=== PATIENT | female | born 1955 | race Caucasian/White ===

== ENCOUNTER 2021-11-09 13:43 | Outpatient (CLI) | payer OTHER ==
[2021-11-09 15:15] LABS: #Basophils 0.1 10x3/uL (0.0-0.2); #Eosinphils 0.2 10x3/uL (0.0-0.5); #Monocytes 0.5 10x3/uL (0.0-1.1); #Neutrophils 3.9 10x3/uL (1.5-8.4); %Eosinophils 2.8 % (0.0-6.0); %Lymphocytes 34.4 % (18.0-47.0); %Monocytes 7.2 % (0.0-10.0); %Neutrophils 54.3 % (40.0-75.0); Hemoglobin 13.2 g/dL (12.0-15.5); Mean Corpuscular HGB CONC 33.3 g/dL (32.0-36.0); Mean Corpuscular Hemoglobin 31.6 pg (27.0-33.0); Mean Corpuscular Volume 94.7 fl (81.6-98.3); Mean Platelet Volume 11.3 fl (7.4-10.4); Platelet Count 217 10x3/uL (150-450); RBC Distribution Width 12.9 % (11.5-14.5); Red Blood Cell (RBC) Count 4.18 10x6/uL (3.90-5.03); White Blood Cell (WBC) Count 7.1 10x3/uL (3.5-10.5)
== END 2021-11-09 13:44 | disposition home or self-care (01) ==
LOC: LABBT 13:43
PROVIDERS: ATTEND Orthopaedic Surgery
DX: Z01.812 Encounter for preprocedural laboratory examination (principal); G56.02 Carpal tunnel syndrome, left upper limb; Z20.822 Contact with and (suspected) exposure to COVID-19
CPT/HCPCS: 85025; U0003; U0005

== ENCOUNTER 2021-11-14 08:22 | Day surgery (SDC) | payer OTHER ==
[2021-11-12 13:09] VITALS: BMI 30.7
[2021-11-14] MEDS ORDERED: fentaNYL Citrate/PF 100 MCG/2 ML SYRINGE ONE (10:57)
[2021-11-14] MEDS ORDERED: Propofol 500 MG/50 ML VIAL ONE (10:57)
[2021-11-14] MEDS ORDERED: Lidocaine 1% w/Epinephrine 1:100K 30 ML VIAL ONE (10:59)
[2021-11-14] MEDS ORDERED: CEFAZOLIN 2 GM VIAL ONE (11:04)
[2021-11-14] MEDS ORDERED: Sodium Chloride 0.9% 100 ML ONE (11:04)
== END 2021-11-14 12:55 | disposition home or self-care (01) ==
LOC: SDC 08:22
PROVIDERS: ATTEND Orthopaedic Surgery
PROC: 01N50ZZ Release Median Nerve, Open Approach (ICD-10-PCS; principal; 2021-11-14)
DX: G56.02 Carpal tunnel syndrome, left upper limb (principal); M16.11 Unilateral primary osteoarthritis, right hip; E66.9 Obesity, unspecified; Z68.30 Body mass index [BMI] 30.0-30.9, adult; Z79.1 Long term (current) use of non-steroidal anti-inflammatories (NSAID); Z79.899 Other long term (current) drug therapy; Z88.5 Allergy status to narcotic agent
CPT/HCPCS: J0690; J2704; J3490

== ENCOUNTER 2022-01-10 12:32 | Outpatient (CLI) | payer OTHER ==
[2022-01-10 14:49] LABS: #Basophils 0.1 10x3/uL (0.0-0.2); #Eosinphils 0.1 10x3/uL (0.0-0.5); #Monocytes 0.4 10x3/uL (0.0-1.1); #Neutrophils 3.1 10x3/uL (1.5-8.4); %Basophils 1.1 % (0.0-2.0); %Eosinophils 1.6 % (0.0-6.0); %Lymphocytes 33.8 % (18.0-47.0); %Monocytes 7.5 % (0.0-10.0); %Neutrophils 55.6 % (40.0-75.0); Hemoglobin 12.5 g/dL (12.0-15.5); Mean Corpuscular HGB CONC 33.6 g/dL (32.0-36.0); Mean Corpuscular Hemoglobin 31.8 pg (27.0-33.0); Mean Corpuscular Volume 94.7 fl (81.6-98.3); Mean Platelet Volume 12.1 fl (7.4-10.4); Platelet Count 238 10x3/uL (150-450); RBC Distribution Width 12.3 % (11.5-14.5); Red Blood Cell (RBC) Count 3.93 10x6/uL (3.90-5.03); White Blood Cell (WBC) Count 5.6 10x3/uL (3.5-10.5)
[2022-01-10 15:08] LABS: INR-International Normal Ratio 0.9; Prothrombin Time 10.3 sec (9.5-12.1)
[2022-01-10 15:11] LABS: Anion Gap 14 mmol/L (10-20); BUN (Urea Nitrogen) 19 mg/dL (9.8-20.1); Calc. Creatinine Clearance 0 mL/min (70-130); Calcium 9.9 mg/dL (7.8-10.44); Carbon Dioxide 25 mmol/L (23-31); Chloride 109 mmol/L (98-107); Estimated GFR 53; Glucose 135 mg/dL (80-115); Potassium 4.6 mmol/L (3.5-5.1); Sodium 143 mmol/L (136-145)
== END 2022-01-10 12:33 | disposition home or self-care (01) ==
LOC: LABBT 12:32
PROVIDERS: ATTEND Orthopaedic Surgery
DX: Z01.812 Encounter for preprocedural laboratory examination (principal); M16.11 Unilateral primary osteoarthritis, right hip; Z20.822 Contact with and (suspected) exposure to COVID-19
CPT/HCPCS: 80048; 85025; 85610; 87081; 87811

== ENCOUNTER 2022-01-15 05:32 | Inpatient (IN) | payer OTHER ==
[2022-01-11 12:23] VITALS: BMI 29.0
[2022-01-15] MEDS ORDERED: Tranexamic Acid 1,000 MG/10 ML VIAL ONE ×3 (05:53→09:44)
[2022-01-15] MEDS ORDERED: Sodium Chloride 0.9% 100 ML ONE ×2 (05:53→07:00)
[2022-01-15] MEDS ORDERED: Vancomycin (BATCH) 1.5 GRAM/300 ML BAG ONE (05:53)
[2022-01-15] MEDS ORDERED: Fentanyl 100 MCG/2 ML VIAL ONE ×2 (06:24→09:29)
[2022-01-15] MEDS ORDERED: Midazolam HCl 2 mg/2 ml Vial ONE (06:24)
[2022-01-15] MEDS ORDERED: fentaNYL Citrate/PF 100 MCG/2 ML SYRINGE ONE (06:39)
[2022-01-15] MEDS ORDERED: CEFAZOLIN 2 GM VIAL ONE (07:00)
[2022-01-15] MEDS ORDERED: Dexamethasone 20 MG/5 ML VIAL ONE (07:12)
[2022-01-15] MEDS ORDERED: Lidocaine 1.5% w/Epi 1:200K 30 ML VIAL (Epid Use) ONE (07:12)
[2022-01-15] MEDS ORDERED: PROPOFOL 200 MG/20 ML VIAL ONE (07:12)
[2022-01-15] MEDS ORDERED: Rocuronium Bromide 10 MG/ML (10ML VIAL) ONE (07:12)
[2022-01-15] MEDS ORDERED: Ondansetron PF 4 MG/2 ML Vial ONE (07:12)
[2022-01-15] MEDS ORDERED: Lidocaine 1% PF 5 ML VIAL ONE (07:12)
[2022-01-15] MEDS ORDERED: Ropivacaine 2% HCl/PF (20 MG/10 ML VIAL) ONE (07:12)
[2022-01-15] MEDS ORDERED: Acetaminophen 325 MG TAB PO PRN ×2 (07:48→11:58)
[2022-01-15] MEDS ORDERED: Ondansetron PF 4 MG/2 ML Vial IVP PRN ×4 (08:00→19:30)
[2022-01-15] MEDS ORDERED: traMADol HCl 50 MG TAB PO PRN ×2 (08:00)
[2022-01-15] MEDS ORDERED: diphenhydrAMINE 25 MG CAP PO PRN ×2 (08:00→11:58)
[2022-01-15] MEDS ORDERED: Naloxone HCl 0.4 mg/ml Vial IVP PRN (08:00)
[2022-01-15] MEDS ORDERED: diphenhydrAMINE 50 MG/ML VIAL IM PRN (08:00)
[2022-01-15] MEDS ORDERED: Naloxone HCl 0.4 mg/ml Vial IV PRN (08:00)
[2022-01-15] MEDS ORDERED: Zolpidem Tartrate 5 MG TAB PO PRN ×4 (08:00→19:30)
[2022-01-15] MEDS ORDERED: fentaNYL Citrate/PF 500 MCG, Bupivacaine 0.75% 10 ML in Sodium Chloride 0.9% 80 ML EPIDURAL SCH (08:00)
[2022-01-15] MEDS ORDERED: Bupivacaine 0.25% 10 ML VIAL EPIDURAL PRN (08:00)
[2022-01-15] MEDS ORDERED: Promethazine HCl 25 MG/ML VIAL IM PRN ×5 (08:00→19:30)
[2022-01-15] MEDS ORDERED: diphenhydrAMINE 50 MG/ML VIAL IVP PRN (08:00)
[2022-01-15] MEDS ORDERED: Promethazine HCl 25 MG SUPP PR PRN (08:00)
[2022-01-15] MEDS ORDERED: HYDROcodone/Acetaminophen 5/325 mg Tablet PO PRN ×2 (08:00)
[2022-01-15] MEDS ORDERED: Moisturizing Cream (Eucerin) 113 GM JAR TOP PRN (08:00)
[2022-01-15] MEDS ORDERED: SUGAMMADEX SODIUM 200 MG/2 ML VIAL ONE (08:31)
[2022-01-15] MEDS ORDERED: Ondansetron HCl/PF 4 MG/2 ML Vial IVP PRN (09:05)
[2022-01-15] MEDS ORDERED: Promethazine HCl 25 MG/ML VIAL IVPB PRN (09:05)
[2022-01-15] MEDS ORDERED: HYDROmorphone 2 MG/ML VIAL SLOW IVP PRN (09:05)
[2022-01-15] MEDS ORDERED: Bupivacaine PF 0.5% 30 ML VIAL ONE (09:22)
[2022-01-15] MEDS ORDERED: HYDROmorphone 0.5 MG/0.5 ML SYRINGE ONE (09:29)
[2022-01-15] MEDS ORDERED: HYDROcodone/Acetaminophen 10/325 mg Tablet PO PRN ×4 (11:15→19:30)
[2022-01-15] MEDS ORDERED: Ropivacaine HCl/PF 250 ML in Premix Bag 1 BAG NERVE BLCK SCH ×2 (11:15→19:30)
[2022-01-15] MEDS: Ketorolac Tromethamine 30 MG/ML VIAL IVP SCH ×2 (15:17→20:44)
[2022-01-15] MEDS: CEFAZOLIN 2 GM in Sodium Chloride 0.9% 100 ML IVPB SCH ×2 (15:17→23:24)
[2022-01-15] MEDS ORDERED: Acetaminophen/Codeine 30-300mg Tablet PO PRN (19:24)
[2022-01-15] MEDS: Ferrous Gluconate 324 MG TAB PO SCH (20:42)
[2022-01-15] MEDS: Aspirin 81 mg Enteric Coated Tablet PO SCH (20:43)
[2022-01-15] MEDS: Senokot S 8.6-50 MG TAB PO SCH (20:43)
[2022-01-16] MEDS: Ketorolac Tromethamine 30 MG/ML VIAL IVP SCH ×2 (05:47→13:27)
[2022-01-16 06:13] LABS: Hemoglobin 10.4 g/dL (12.0-16.0); Mean Corpuscular HGB CONC 33.5 g/dL (32.0-36.0); Mean Corpuscular Hemoglobin 32.2 pg (27.0-31.0); Mean Platelet Volume 9.2 fL (7.4-10.4); Platelet Count 163 thou/uL (130-400); RBC Distribution Width 11.6 % (11.5-14.5); Red Blood Cell (RBC) Count 3.23 mill/uL (4.20-5.40); White Blood Cell (WBC) Count 9.3 thou/uL (4.8-10.8)
[2022-01-16] MEDS: Ferrous Gluconate 324 MG TAB PO SCH (08:01)
[2022-01-16] MEDS: Senokot S 8.6-50 MG TAB PO SCH (08:02)
[2022-01-16] MEDS: Aspirin 81 mg Enteric Coated Tablet PO SCH (08:02)
[2022-01-16] MEDS ORDERED: Multivitamin W/ Minerals 1 TAB PO SCH (09:00)
[2022-01-16 09:40] VITALS: TEMP 98.9
[2022-01-16 12:00] VITALS: BP 98/60
== END 2022-01-16 14:48 | disposition home or self-care (01) | DRG 470 ==
LOC: SDC 05:32 → SJJU 11:58
PROVIDERS: ADMIT Orthopaedic Surgery; ATTEND Orthopaedic Surgery
PROC: 0SR902Z Replacement of Right Hip Joint with Metal on Polyethylene Synthetic Substitute, Open Approach (ICD-10-PCS; principal; 2022-01-15)
DX: M16.11 Unilateral primary osteoarthritis, right hip (principal); Z20.822 Contact with and (suspected) exposure to COVID-19; J40 Bronchitis, not specified as acute or chronic; Z90.49 Acquired absence of other specified parts of digestive tract; Z98.890 Other specified postprocedural states; Z79.899 Other long term (current) drug therapy
CPT/HCPCS: 36415; 72170; 85027; C1776; J0690; J1100; J1170; J1885; J2001; J2250; J2405; J2704; J2795; J3010; J3370; J3490; S0020